=== PATIENT | female | born 1985 | race Caucasian/White ===

== ENCOUNTER → 2017-08-18 17:34 | Outpatient (CLI) | payer OTHER | END | disposition home or self-care (01) | LOC: LAB 17:34 | DX: J10.1 Influenza due to other identified influenza virus with other respiratory manifestations (principal) ==

== ENCOUNTER → 2017-08-18 | Outpatient (CLI) | payer OTHER ==
[~2017-08-18] VITALS: Ht 152.4 cm; Wt 127.0 kg
[~2017-08-18] MED LIST: CIPRO500 MG PO; KETO10TA2 PO; NORFLEX100MG PO; TRAMADOL HCL-AP1 TAB PO
== END | disposition home or self-care (01) ==
LOC: PPHC 15:57
DX: J06.9 Acute upper respiratory infection, unspecified (principal)

== ENCOUNTER 2018-08-30 15:23 | Outpatient (CLI) | payer OTHER | END 2018-08-30 15:32 | disposition home or self-care (01) | LOC: LAB 15:23 | DX: J20.0 Acute bronchitis due to Mycoplasma pneumoniae (principal); Z11.3 Encounter for screening for infections with a predominantly sexual mode of transmission; J11.1 Influenza due to unidentified influenza virus with other respiratory manifestations ==

== ENCOUNTER 2018-09-12 07:16 | Outpatient (CLI) | payer OTHER | END 2018-09-12 14:33 | disposition HB | LOC: LAB 07:16 | DX: J32.8 Other chronic sinusitis (principal); E03.8 Other specified hypothyroidism; E55.9 Vitamin D deficiency, unspecified; E78.2 Mixed hyperlipidemia; Z13.1 Encounter for screening for diabetes mellitus; Z11.3 Encounter for screening for infections with a predominantly sexual mode of transmission; M79.671 Pain in right foot; M77.31 Calcaneal spur, right foot; R00.2 Palpitations ==

== ENCOUNTER 2018-10-24 07:09 | Outpatient (CLI) | payer OTHER | END 2018-10-24 07:15 | disposition home or self-care (01) | LOC: SONOGRAMA 07:09 → MAMO-SONO 13:15 | DX: R10.11 Right upper quadrant pain (principal); K80.80 Other cholelithiasis without obstruction ==

== ENCOUNTER 2019-03-13 11:48 | Outpatient (CLI) | payer OTHER | END 2019-03-13 11:55 | disposition home or self-care (01) | LOC: LAB 11:48 | DX: J11.1 Influenza due to unidentified influenza virus with other respiratory manifestations (principal); R05 Cough ==

== ENCOUNTER 2019-04-26 10:40 | Outpatient (CLI) | payer OTHER | END 2019-04-26 10:48 | disposition home or self-care (01) | LOC: LAB 10:40 | DX: R00.2 Palpitations (principal); K29.00 Acute gastritis without bleeding; R19.07 Generalized intra-abdominal and pelvic swelling, mass and lump ==

== ENCOUNTER 2019-10-03 14:05 | Outpatient (CLI) | payer OTHER | END 2019-10-03 14:11 | disposition home or self-care (01) | LOC: LAB 14:05 | DX: J11.1 Influenza due to unidentified influenza virus with other respiratory manifestations (principal); J06.9 Acute upper respiratory infection, unspecified ==

== ENCOUNTER 2019-10-16 08:57 | Outpatient (CLI) | payer OTHER | END 2019-10-16 09:04 | disposition home or self-care (01) | LOC: LAB 08:57 | DX: J06.9 Acute upper respiratory infection, unspecified (principal); R05 Cough ==

== ENCOUNTER → 2020-01-16 07:27 | Outpatient (CLI) | payer OTHER | END | disposition home or self-care (01) | LOC: LAB 07:27 | PROVIDERS: ATTEND General Practice | DX: R00.2 Palpitations (principal); Z00.8 Encounter for other general examination; Z13.6 Encounter for screening for cardiovascular disorders; Z11.3 Encounter for screening for infections with a predominantly sexual mode of transmission; Z11.4 Encounter for screening for human immunodeficiency virus [HIV] ==

== ENCOUNTER 2020-04-01 | Outpatient (CLI) | payer OTHER | END 2020-04-01 00:01 | disposition home or self-care (01) | LOC: LAB → PPH VACUNA → LAB 00:01 | DX: Z23 Encounter for immunization (principal) ==